=== PATIENT | female | born 1995 | race Caucasian/White ===

== ENCOUNTER 2017-09-25 22:40 | Emergency (ER) | payer BC, OTHER ==
[2017-09-25 23:54] LABS: ABS Basophils 0.1 10^3/ul (0-0.2); ABS Eosinophils 0.2 10^3/ul (0-0.6); ABS Lymphocytes 2.1 10^3/ul (1.0-4.8); ABS Monocytes 0.6 10^3/ul (0-0.8); ABS Nucleated RBC 0 10^3/ul; Eosinophil % 3.2 % (0-6); Hematocrit 37 % (35-47); Hemoglobin 12.8 g/dl (12.0-16.0); Lymphocyte % 29.8 % (25-47); Mean Corpuscular HGB Conc 35 g/dl (31-36); Mean Corpuscular Hemoglobin 29 pg (27-31); Mean Corpuscular Volume 81 fL (80-97); Mean Platelet Volume 6.4 um3 (7.4-10.4); Nucleated Red Blood Cells % 0.2; Platelet Count 260 10^3/ul (150-450); Red Blood Count 4.48 10^6/ul (4.0-5.4); Red Cell Distribution Width 13 % (10.5-15)
[2017-09-26 00:13] LABS: EGFR Non-African American 114.2 (>60)
[2017-09-26 01:11] VITALS: BP 132/76
--- NOTE | 2017-09-26 01:16 | ED ---
Complex/Multi-Sys Presentation - HPI Summary HPI Summary: Pt. is a 22y.o female who presents to the ER for feeling "weird." Pt. states she has been having these episodes on and off x several months. She described episodes as though she feels very hot, has a warm sensation to the center of her chest and feels as though she cannot comprehend what is going on around her. After an episode she feels very fatigue. Pt. states she had an episode this evening while a friend was braiding her hair and presented to the ER. She currently is asymptomatic. She denies recent illness, URI sxs, abd. pain, V/D, urinary symptoms. Past medical history of anxiety/depression. Currently sees a psychiatrist and is on Cymbalta. Symptoms are moderate in severity. No current modifying factors. Pt. does note any proceeding factors. - History Of Current Complaint Chief Complaint: EDGeneral Time Seen by Provider: 09/25/17 23:25 Hx Obtained From: Patient - Allergies/Home Medications Allergies/Adverse Reactions: Allergies Allergy/AdvReac Type Severity Reaction Status Date / Time No Known Allergies Allergy Verified 09/25/17 23:01 PMH/Surg Hx/FS Hx/Imm Hx Previously Healthy: Yes Infectious Disease History: No Infectious Disease History: Denies: Traveled Outside the [place] in Last 30 Days - Social History Occupation: Student Lives: Dormitory/Roommates Alcohol Use: Occasionally Substance Use Type: Reports: None Smoking Status (MU): Never Smoked Tobacco Review of Systems Constitutional: Negative Negative: Fever, Chills Eyes: Negative ENT: Negative Negative: Sore Throat, Ear Ache, Nasal Discharge Cardiovascular: Negative Positive: Other - "warm sensation to center of chest". Negative: Palpitations, Chest Pain Negative: Shortness Of Breath, Cough Negative: Abdominal Pain, Vomiting, Diarrhea Genitourinary: Negative Musculoskeletal: Negative Skin: Negative Neurological: Negative All Other Systems Reviewed And Are Negative: Yes Physical Exam Triage Information Reviewed: Yes Vital Signs On Initial Exam: Initial Vitals Temp Pulse Resp BP Pulse Ox 98.3 F 70 18 123/78 100 09/25/17 22:56 09/25/17 22:56 09/25/17 22:56 09/25/17 22:56 09/25/17 22:56 Vital Signs Reviewed: Yes Appearance: Positive: Well-Appearing - Pt. sitting up in bed in NAD. Friend present. Skin: Positive: Warm, Dry Head/Face: Positive: Normal Head/Face Inspection Eyes: Positive: Normal, SOURAV ENT: Positive: Normal ENT inspection, Pharynx normal, TMs normal Neck: Positive: Supple. Negative: Nuchal Rigidity Respiratory/Lung Sounds: Positive: Clear to Auscultation, Breath Sounds Present Cardiovascular: Positive: Normal, RRR Abdomen Description: Positive: Nontender, Soft Musculoskeletal: Positive: Normal Neurological: Positive: Normal, CN Intact II-III Psychiatric: Positive: Normal Diagnostics - Vital Signs Vital Signs Temp Pulse Resp BP Pulse Ox 09/26/17 01:10 98.5 F 61 16 132/76 99 09/25/17 22:56 98.3 F 70 18 123/78 100 - Laboratory Lab Results: Lab Results 09/25/17 09/25/17 Range/Units 23:44 23:44 WBC 7.0 (3.5-10.8) 10^3/ul RBC 4.48 (4.0-5.4) 10^6/ul Hgb 12.8 (12.0-16.0) g/dl Hct 37 (35-47) % MCV 81 (80-97) fL MCH 29 (27-31) pg MCHC 35 (31-36) g/dl RDW 13 (10.5-15) % Plt Count 260 (150-450) 10^3/ul MPV 6.4 L (7.4-10.4) um3 Neut % (Auto) 57.9 (38-83) % Lymph % (Auto) 29.8 (25-47) % [place] % (Auto) 8.2 H (0-7) % Eos % (Auto) 3.2 (0-6) % Baso % (Auto) 0.9 (0-2) % Absolute Neuts (auto) 4.0 (1.5-7.7) 10^3/ul Absolute Lymphs (auto) 2.1 (1.0-4.8) 10^3/ul Absolute Monos (auto) 0.6 (0-0.8) 10^3/ul Absolute Eos (auto) 0.2 (0-0.6) 10^3/ul Absolute Basos (auto) 0.1 (0-0.2) 10^3/ul Absolute Nucleated RBC 0 10^3/ul Nucleated RBC % 0.2 Sodium 136 L (139-145) mmol/L Potassium 3.8 (3.5-5.0) mmol/L Chloride 106 (101-111) mmol/L Carbon Dioxide 25 (22-32) mmol/L Anion Gap 5 (2-11) mmol/L BUN 10 (6-24) mg/dL Creatinine 0.66 (0.51-0.95) mg/dL Est GFR ( Amer) 146.8 (>60) Est GFR (Non-Af Amer) 114.2 (>60) BUN/Creatinine Ratio 15.2 (8-20) Glucose 103 H (70-100) mg/dL Calcium 9.2 (8.6-10.3) mg/dL Total Bilirubin 0.30 (0.2-1.0) mg/dL AST 19 (13-39) U/L ALT 11 (7-52) U/L Alkaline Phosphatase 56 (34-104) U/L Total Protein 6.8 (6.4-8.9) g/dL Albumin 4.2 (3.2-5.2) g/dL Globulin 2.6 (2-4) g/dL Albumin/Globulin Ratio 1.6 (1-3) TSH 4.74 (0.34-5.60) mcIU/mL Beta HCG, Quant < 0.60 mIU/mL Result Diagrams: 09/25/17 23:44 09/25/17 23:44 Lab Statement: Any lab studies that have been ordered have been reviewed, and results considered in the medical decision making process. Complex Multi-Symp Course/Dx Course Of Treatment: Pt. presenting to the ER for the above symptoms. She is afebrile with stable vital signs. Neurological exam is unremarkable. Basic blood work was obtained. Labs are unremarkable. Case discussed briefly with Dr. Zaldivar. Results were discussed. Suspect etiology of pt.'s symptoms is stress related. Recommend close f.u with PCP and referral to neurology for further evaluation. Pt. understands and agrees with plan. - Diagnoses Provider Diagnoses: Anxiety, Stress reaction Discharge - Sign-Out/Discharge Documenting (check all that apply): Discharge/Admit/Transfer - Discharge Plan Condition: Good Disposition: HOME Patient Education Materials: Stress (ED), Panic Attack (ED) Referrals: Danielle Aponte [Primary Care Provider] - Additional Instructions: Call your PCP tomorrow for an appointment for neurology referral Continue medications as directed Return to ER if symptoms change or worsen - Billing Disposition and Condition Condition: GOOD Disposition: HOME
== END 2017-09-26 01:10 | disposition home or self-care (01) ==
LOC: ED 22:40
DX: F41.9 Anxiety disorder, unspecified (principal); F43.9 Reaction to severe stress, unspecified
CPT/HCPCS: 36415; 80053; 84443; 84702; 85025; 99282